=== PATIENT | female | born 1975 | race American Indian/Alaskan Native ===

== ENCOUNTER 2017-05-15 15:32 | Emergency (ER) | payer MEDICAID ==
[2017-05-15 15:45] VITALS: TEMP 98.3; BMI 34.2
--- NOTE | 2017-05-15 16:32 | ED PDOC ---
Arrival/HPI - General Historian: Patient - History of Present Illness Time/Duration: Prior to Arrival Context: Home - General Chief Complaint: Dizziness/Lightheaded Time Seen by Provider: 05/15/17 15:38 - History of Present Illness Narrative History of Present Illness (Text): 05/15/17 16:15 This 41 yo female with pmh hypothyroidism, HTN, presents to this ED c/o feeling light headedness, and dizzy x BACK END ENGINEER. Patient stated while walking in a local store, she developed symptoms. Patient stated she feels well in her normal state of health. Patient does not want to have blood test, or further imaging since she is asymptomatic, and she wishes to be discharge home soon. (Raquel Mosqueda) Past Medical History - Provider Review Nursing Documentation Reviewed: Yes - Infectious Disease Hx of Infectious Diseases: None - Reproductive Menopause: No - Cardiac Hx Hypertension: Yes - Pulmonary Hx Asthma: Yes (as a child she states) - Neurological Hx Neurological Disorder: No - HEENT Hx HEENT Disorder: No - Renal Hx Renal Disorder: No - Endocrine/Metabolic Hx Hyperthyroidism: Yes (thyroidectomy) Hx Hypothyroidism: Yes (thyroidectomy 09/2016) - Hematological/Oncological Hx Blood Disorders: No - Integumentary Hx Dermatological Disorder: No - Musculoskeletal/Rheumatological Hx Musculoskeletal Disorders: No - Gastrointestinal Hx Gastrointestinal Disorders: No - Genitourinary/Gynecological Hx Genitourinary Disorders: No - Psychiatric Hx Psychophysiologic Disorder: No Hx Substance Use: No - Surgical History Hx Section: Yes (2000) Hx Tubal Ligation: Yes - Anesthesia Hx Anesthesia: Yes Hx Anesthesia Reactions: No Hx Malignant Hyperthermia: No - Suicidal Assessment Feels Threatened In Home Enviroment: No Family/Social History - Physician Review Nursing Documentation Reviewed: Yes Family/Social History: Other (non-contributory) Smoking Status: Never Smoked Hx Alcohol Use: No Hx Substance Use: No Allergies/Home Meds Allergies/Adverse Reactions: Allergies alprazolam [From Xanax] Allergy (Verified 12/01/16 20:27) Home Medications: Home Meds Medication Instructions Recorded Confirmed Losartan [Cozaar] 50 mg PO DAILY 07/22/15 05/15/17 Levothyroxine [Synthroid] 150 mcg PO DAILY 11/24/16 05/15/17 Review of Systems - Review of Systems Constitutional: Normal. absent: Fatigue, Weight Change, Fevers, Night Sweats Eyes: Normal ENT: Normal Respiratory: Normal Cardiovascular: Normal Gastrointestinal: Normal Genitourinary Female: Normal Musculoskeletal: Normal Skin: Normal Neurological: Dizziness. absent: Headache, Focal Weakness, Gait Changes, Speech Changes, Facial Droop, Disequilibrium, Seizure Endocrine: Normal Hemo/Lymphatic: Normal Psychiatric: Normal Physical Exam Temperature: Afebrile Blood Pressure: Normal Pulse: Regular Respiratory Rate: Normal Appearance: Positive for: Well-Appearing, Non-Toxic, Comfortable Pain Distress: None Mental Status: Positive for: Alert and Oriented X 3 - Systems Exam Head: Present: Atraumatic, Normocephalic Pupils: Present: PERRL Extroacular Muscles: Present: EOMI Conjunctiva: Present: Normal Mouth: Present: Moist Mucous Membranes Neck: Present: Normal Range of Motion. No: Meningeal Signs Respiratory/Chest: Present: Clear to Auscultation, Good Air Exchange. No: Respiratory Distress, Accessory Muscle Use, Wheezes, Decreased Breath Sounds, Rales, Retracting, Rhonchi Cardiovascular: Present: Regular Rate and Rhythm, Normal S1, S2. No: Murmurs Abdomen: Present: Normal Bowel Sounds. No: Tenderness, Distention, Peritoneal Signs, Rebound, Guarding Back: Present: Normal Inspection. No: CVA Tenderness Upper Extremity: Present: Normal Inspection, Normal ROM Lower Extremity: Present: Normal Inspection, Normal ROM Neurological: Present: GCS=15, CN II-XII Intact, Speech Normal, Motor Func Grossly Intact, Normal Sensory Function, Normal Cerebellar Funct, Gait Normal Skin: Present: Warm, Dry, Normal Color. No: Rashes Psychiatric: Present: Alert, Oriented x 3, Normal Insight, Normal Concentration Medical Decision Making Re-evaluation Time: 16:44 Reassessment Condition: Re-examined, Improved ED Course and Treatment: 05/15/17 16:38 Patient came by BLS for one episode of dizziness while walking at a local store. patient check her BP and it was found to be elevated 170's/110's. manager learning called ambulance. During physical exam, patient stated dizziness has improved, and she feels well on her normal state of health. Patient stated she is feeling well, that she does not wish to have blood test done. She would like to be discharge home, and she will return to emergency if symptoms returns. Patient has a normal gait. (Raquel Mosqueda) I was available for consultation during PA evaluation. The chart was reviewed by me, and I agree with disposition. The documented history was done by the physician elementary school librarian. The documented procedures were done by the physician elementary school librarian. (Jose Ann) - Medication Orders Current Medication Orders: Discontinued Medications Meclizine HCl (Antivert) 50 mg PO STAT STA Stop: 05/15/17 16:29 Disposition/Present on Arrival - Present on Arrival Any Indicators Present on Arrival: No History of DVT/PE: No History of Uncontrolled Diabetes: No Urinary Catheter: No History of Decub. Ulcer: No History Surgical Site Infection Following: None - Disposition Have Diagnosis and Disposition been Completed?: Yes Disposition Time: 16:45 Patient Plan: Discharge - Disposition Diagnosis: Dizziness Disposition: HOME/ ROUTINE Discharge Instructions (ExitCare): Dizziness (ED) Additional Instructions: Call private doctor for follow up visit in 1-2 days. Make sure to take your medication as instructed by your doctor. return to emergency if symptoms worsen. Prescriptions: Meclizine [Meclizine*] 25 mg PO Q6 PRN #20 tab PRN Reason: Dizziness Referrals: PCP,NO [Primary Care Provider] - Follow up with primary [facility] [Outside] - Follow up with primary [facility] [Outside] - Follow up with primary Forms: [employer] (Ugandan)
[2017-05-15 16:55] VITALS: BP 120/80; PULSE 62; RESP 17; O2SAT 99
== END 2017-05-15 16:58 | disposition home or self-care (01) ==
LOC: ED 15:32
DX: R42 Dizziness and giddiness (principal); I10 Essential (primary) hypertension

== ENCOUNTER 2017-10-09 02:39 | Emergency (ER) | payer MEDICAID ==
[2017-10-09 02:40] VITALS: BMI 34.2
[2017-10-09 02:45] VITALS: TEMP 98.3
[2017-10-09] MEDS ORDERED: HYDROmorphone 1 mg/ml ISec IM STA (03:03)
[2017-10-09] MEDS ORDERED: DiphenhydrAMINE 50 mg/ml Inj IM STA (03:03)
[2017-10-09 03:16] LABS: BASO # 0.02 K/mm3 (0.0-2.0); BASO % 0.4 % (0.0-3.0); EOS # 0.1 (0.0-0.7); GRAN # 2.68 (1.4-6.5); GRAN % 54.6 % (50.0-68.0); HEMOGLOBIN 10.9 g/dL (12.0-16.0); LYMPH # 1.9 (1.2-3.4); LYMPH % 39.5 % (22.0-35.0); MEAN CELL VOLUME 87.2 fl (80.0-105.0); MEAN CORPUSCULAR HGB CONC 33.2 g/dl (31.0-37.0); MEAN PLATELET VOLUME 9.6 fl (7.0-11.0); MONO # 0.2 (0.1-0.6); MONO % 4.5 % (1.0-6.0); RBC 3.76 10^6/uL (3.5-6.1); RED CELL DISTRIBUTION WIDTH 13.6 % (11.5-14.5); WHITE BLOOD COUNT 4.9 10^3/ul (4.5-11.0)
[2017-10-09 03:23] LABS: ALB/GLOB RATIO 1.2 (1.1-1.8); ALBUMIN 4.1 g/dL (3.0-4.8); ALT/SGPT 31 U/L (7-56); AST/SGOT 23 U/L (14-36); BLOOD UREA NITROGEN 18 mg/dL (7-21); CALCIUM 8.6 mg/dL (8.4-10.5); GFR AFRICAN-AMERICAN 50; GFR NON-AFRICAN AMERICAN 42
[2017-10-09 03:32] LABS: INR 1.03 (0.93-1.08); PROTHROMBIN TIME 11.8 SECONDS (9.4-12.5)
[2017-10-09 03:35] LABS: B-TYPE NATRIURETIC PEPTIDE 31.2 pg/mL (0-450); TROPONIN I < 0.01 ng/mL
--- NOTE | 2017-10-09 03:46 | ED PDOC ---
Arrival/HPI - General Chief Complaint: Medical Clearance Time Seen by Provider: 10/09/17 02:44 Historian: Patient - History of Present Illness Narrative History of Present Illness (Text): 10/09/17 03:43 A 41 year old female whose past medical history include hypertension, presents to the emergency department complaining of left sciatic nerve pain, 2 day duration eye twitch, and palpitations. The patient states that today, the palpitations felt as if her heart was skipping a beat. The patient denies fevers , chills, headache, dizziness, chest pain, shortness of breath, dyspnea on exertion, cough, abdominal pain, nausea, vomiting, diarrhea, neck pain, urinary/ bowel changes, or any other complaint. Time/Duration: Other (Today) Symptom Onset: Sudden Symptom Course: Unchanged Activities at Onset: Rest, Light Context: Home Past Medical History - Provider Review Nursing Documentation Reviewed: Yes - Infectious Disease Hx of Infectious Diseases: None - Reproductive Menopause: Yes - Cardiac Hx Hypertension: Yes - Pulmonary Hx Respiratory Disorders: No - Neurological Hx Neurological Disorder: No - HEENT Hx HEENT Disorder: No - Renal Hx Renal Disorder: No - Endocrine/Metabolic Hx Hyperthyroidism: (thyroidectomy) Hx Hypothyroidism: Yes (thyroidectomy 09/2016) - Hematological/Oncological Hx Blood Disorders: No - Integumentary Hx Dermatological Disorder: No - Musculoskeletal/Rheumatological Hx Musculoskeletal Disorders: No - Gastrointestinal Hx Gastrointestinal Disorders: No - Genitourinary/Gynecological Hx Genitourinary Disorders: No - Psychiatric Hx Psychophysiologic Disorder: No Hx Substance Use: No - Surgical History Hx Section: Yes (x2) Hx Thyroidectomy: Yes Hx Tubal Ligation: Yes - Anesthesia Hx Anesthesia: Yes Hx Anesthesia Reactions: No Hx Malignant Hyperthermia: No - Suicidal Assessment Feels Threatened In Home Enviroment: No Family/Social History - Physician Review Nursing Documentation Reviewed: Yes Family/Social History: No Known Family HX Smoking Status: Never Smoked Hx Alcohol Use: No Hx Substance Use: No Allergies/Home Meds Allergies/Adverse Reactions: Allergies alprazolam [From Xanax] Allergy (Mild, Verified 10/09/17 02:46) RASH Home Medications: Home Meds Medication Instructions Recorded Confirmed Levothyroxine [Synthroid] 150 mcg PO DAILY 11/24/16 10/09/17 Review of Systems - Physician Review All systems were reviewed & negative as marked: Yes - Review of Systems Constitutional: absent: Fevers, Night Sweats Respiratory: absent: SOB, Cough Cardiovascular: Palpitations. absent: Chest Pain, PARKER Gastrointestinal: absent: Abdominal Pain, Constipation, Nausea, Vomiting Genitourinary Female: absent: Urine Output Changes Musculoskeletal: Other (Left Sciatic nerve pain.) Neurological: absent: Headache, Dizziness Physical Exam Vital Signs Reviewed: Yes Vital Signs Temp Pulse Resp BP Pulse Ox 10/09/17 04:54 76 17 130/87 99 10/09/17 02:40 98.3 F 66 18 120/91 H 100 Temperature: Afebrile Blood Pressure: Hypertensive Pulse: Regular Respiratory Rate: Normal Appearance: Positive for: Well-Appearing, Non-Toxic, Comfortable Pain Distress: None Mental Status: Positive for: Alert and Oriented X 3 - Systems Exam Head: Present: Atraumatic, Normocephalic Pupils: Present: PERRL Extroacular Muscles: Present: EOMI Conjunctiva: Present: Normal Mouth: Present: Moist Mucous Membranes Neck: Present: Normal Range of Motion Respiratory/Chest: Present: Clear to Auscultation, Good Air Exchange. No: Respiratory Distress, Accessory Muscle Use Cardiovascular: Present: Regular Rate and Rhythm, Normal S1, S2. No: Murmurs Abdomen: Present: Normal Bowel Sounds. No: Tenderness, Distention, Peritoneal Signs Back: Present: Normal Inspection Upper Extremity: Present: Normal Inspection. No: Cyanosis, Edema Lower Extremity: Present: Normal Inspection. No: Edema Neurological: Present: GCS=15, CN II-XII Intact, Speech Normal Skin: Present: Warm, Dry, Normal Color. No: Rashes Psychiatric: Present: Alert, Oriented x 3, Normal Insight, Normal Concentration Medical Decision Making ED Course and Treatment: 10/09/17 03:45 Impression: A 41 year old female presents to the emergency department complaining of palpitations, 2 day duration eye twitch and left sciatic nerve pain. Plan: -- EKG -- Head CT -- Chest X-ray -- Aspirin -- Reassess and disposition Progress Notes: EKG: Ordered, reviewed, and independently interpreted the EKG. Rate : 59 BPM Rhythm : Sinus Bradycardia 10/09/17 05:29: Patient is resting comfortably, and is in no acute distress. Patient states that she is feeling much better. She was instructed to follow up with her PMD for further evaluation. CT Head Without Intravenous Contrast Dictated and Authenticated by: Daniel Brown MD 10/09/2017 4:26 AM Eastern Time ([place] & [place]) IMPRESSION: 1. No definite acute intracranial abnormality. 2. Incidental/non-acute findings are described above. - Lab Interpretations Lab Results: 10/09/17 03:00 10/09/17 03:00 Lab Results 10/09/17 03:00: Sodium 142, Potassium 4.0, Chloride 102, Carbon Dioxide 28, Anion Gap 16, BUN 18, Creatinine 1.4 H, Est GFR ( Amer) 50, Est GFR (Non- Af Amer) 42, Random Glucose 94, Calcium 8.6, Total Bilirubin 0.3, AST 23, ALT 31 , Alkaline Phosphatase 67, Lactate Dehydrogenase 402, Total Creatine Kinase 111 , Troponin I < 0.01, NT-Pro-B Natriuret Pep 31.2, Total Protein 7.7, Albumin 4.1 , Globulin 3.6, Albumin/Globulin Ratio 1.2 10/09/17 03:00: PT 11.8, INR 1.03, D-Dimer, Quantitative < 200 10/09/17 03:00: WBC 4.9, RBC 3.76, Hgb 10.9 L, Hct 32.8 L, MCV 87.2, MCH 29.0, MCHC 33.2, RDW 13.6, Plt Count 306, MPV 9.6, Gran % 54.6, Lymph % (Auto) 39.5 H , [place] % (Auto) 4.5, Eos % (Auto) 1.0 L, Baso % (Auto) 0.4, Gran # 2.68, Lymph # (Auto) 1.9, [place] # (Auto) 0.2, Eos # (Auto) 0.1, Baso # (Auto) 0.02 I have reviewed the lab results: Yes - RAD Interpretation Radiology Orders: 10/09/17 02:45 CXR [CHEST TWO VIEWS (PA/LAT)] [RAD] Stat 10/09/17 03:30 HEAD W/O CONTRAST [CT] Stat - EKG Interpretation Interpreted by ED Physician: Yes Type: 12 lead EKG - Medication Orders Current Medication Orders: Discontinued Medications Aspirin (Aspirin) 975 mg PO STAT STA Stop: 10/09/17 03:07 Last Admin: 10/09/17 03:19 Dose: 975 mg - Scribe Statement The provider has reviewed the documentation as recorded by the Scribe Priti Hager Provider Scribe Attestation: All medical record entries made by the Scribe were at my direction and personally dictated by me. I have reviewed the chart and agree that the record accurately reflects my personal performance of the history, physical exam, medical decision making, and the department course for this patient. I have also personally directed, reviewed, and agree with the discharge instructions and disposition. Disposition/Present on Arrival - Present on Arrival Any Indicators Present on Arrival: No History of DVT/PE: No History of Uncontrolled Diabetes: No Urinary Catheter: No History of Decub. Ulcer: No History Surgical Site Infection Following: None - Disposition Have Diagnosis and Disposition been Completed?: Yes Diagnosis: Headache, Palpitations Disposition: HOME/ ROUTINE Disposition Time: 05:32 Patient Plan: Discharge Patient Problems: Current Active Problems Problem Status Onset Headache Acute Palpitations Acute Condition: GOOD Discharge Instructions (ExitCare): Palpitations (ED), Acute Headache (ED) Additional Instructions: Mrs Moore- I am happy to tell you that all of your tests are good. Please follow up with your doctor next week, and return to us if worse or any problems. Noel- Dr. Donn Bishop Referrals: Brian Haley MD [Primary Care Provider] - Follow up with primary Forms: [employer] ([place])
[2017-10-09 04:07] LABS: D DIMER < 200 ng/mL (0-243)
--- NOTE | 2017-10-09 04:26 | CT ---
EXAM: CT Head Without Intravenous Contrast CLINICAL HISTORY: 41 years old, female; Pain; Headache; Additional info: Left sided headache TECHNIQUE: Axial computed tomography images of the head/brain without intravenous contrast. All CT scans at this facility use one or more dose reduction techniques, viz.: automated exposure control; ma/kV adjustment per patient size (including targeted exams where dose is matched to indication; i.e. head); or iterative reconstruction technique. Coronal and sagittal reformatted images were created and reviewed. COMPARISON: No relevant prior studies available. FINDINGS: Brain: No intracranial hemorrhage. No mass. No definite edema. Ventricles: No hydrocephalus. Bones/joints: No acute fracture. Soft tissues: Unremarkable. Sinuses: Few left frontal retention cysts. Mastoid air cells: No mastoid effusion. Orbits: Unremarkable as visualized. IMPRESSION: 1. No definite acute intracranial abnormality. 2. Incidental/non-acute findings are described above.
[2017-10-09 04:55] VITALS: BP 130/87; PULSE 76; RESP 17; O2SAT 99
--- NOTE | 2017-10-09 08:24 | RAD ---
HISTORY: Palpitations COMPARISON: None available. TECHNIQUE: Chest PA and lateral FINDINGS: LUNGS: No focal consolidation. Please note that chest x-ray has limited sensitivity for the detection of pulmonary masses. PLEURA: No significant pleural effusion identified. No definite pneumothorax . CARDIOVASCULAR: Heart size appears top-normal. OSSEOUS STRUCTURES: No acute osseous abnormality identified. VISUALIZED UPPER ABDOMEN: Unremarkable. OTHER FINDINGS: None. IMPRESSION: No focal consolidation, significant pleural effusion, or definite pneumothorax identified.
--- NOTE | 2017-10-09 16:12 | CARD ---
APPROVED REPORT EKG Measurement Heart [id number] MD [id number] <Conclusion> Sinus bradycardia Minimal voltage criteria for LVH, may be normal variant Borderline ECG
== END 2017-10-09 05:42 | disposition home or self-care (01) ==
LOC: ED 02:39
DX: R51 Headache (principal); R00.2 Palpitations; I10 Essential (primary) hypertension

== ENCOUNTER 2017-11-08 02:33 | Emergency (ER) | payer MEDICAID ==
[2017-11-08 02:56] VITALS: BMI 29.8
[2017-11-08 03:08] VITALS: O2SAT 100
--- NOTE | 2017-11-08 03:10 | ED PDOC ---
Arrival/HPI - General Chief Complaint: Weakness/Neurological Deficit Time Seen by Provider: 11/08/17 02:58 Historian: Patient - History of Present Illness Narrative History of Present Illness (Text): you were treated in the ED today for history of hypertension, having left eye twitching, left arm tingling for 24hrs and now some developing left arm numbness , having some stress but otherwise without any nausea/vomiting/headache/ dizziness/difficulty breathing/chest pain/abdomen pain/numbness/loss of limb function/pain with urination/thoughts to harm yourself or others or hallucinations. 11/08/17 03:08 11/08/17 03:10 Time/Duration: 24 hours Symptom Onset: Gradual Symptom Course: Intermittent Quality: Other (no pain) Activities at Onset: Rest Context: Sitting Past Medical History - Provider Review Nursing Documentation Reviewed: Yes - Travel History Have you recently traveled outside [place] w/in the past 3 mons?: No - Infectious Disease Hx of Infectious Diseases: None - Cardiac Hx Hypertension: Yes - Pulmonary Hx Respiratory Disorders: No - Neurological Hx Neurological Disorder: No - HEENT Hx HEENT Disorder: No - Renal Hx Renal Disorder: No - Endocrine/Metabolic Hx Hyperthyroidism: (thyroidectomy) Hx Hypothyroidism: Yes (thyroidectomy 09/2016) - Hematological/Oncological Hx Blood Disorders: No - Integumentary Hx Dermatological Disorder: No - Musculoskeletal/Rheumatological Hx Musculoskeletal Disorders: No - Gastrointestinal Hx Gastrointestinal Disorders: No - Genitourinary/Gynecological Hx Genitourinary Disorders: No - Psychiatric Hx Psychophysiologic Disorder: No Hx Substance Use: No - Surgical History Hx Section: Yes (x2) Hx Thyroidectomy: Yes Hx Tubal Ligation: Yes - Anesthesia Hx Anesthesia: Yes Hx Anesthesia Reactions: No Hx Malignant Hyperthermia: No - Suicidal Assessment Feels Threatened In Home Enviroment: No Family/Social History - Physician Review Nursing Documentation Reviewed: Yes Family/Social History: No Known Family HX Smoking Status: Never Smoked Hx Alcohol Use: No Hx Substance Use: No Allergies/Home Meds Allergies/Adverse Reactions: Allergies alprazolam [From Xanax] Allergy (Mild, Verified 10/09/17 02:46) RASH Home Medications: Home Meds Medication Instructions Recorded Confirmed Levothyroxine [Synthroid] 150 mcg PO DAILY 11/24/16 11/08/17 Losartan [Cozaar] 50 mg PO DAILY 11/08/17 11/08/17 Review of Systems - Review of Systems Constitutional: Normal Eyes: Normal ENT: Normal Respiratory: Normal Cardiovascular: Normal Gastrointestinal: Normal Genitourinary Female: Normal Musculoskeletal: Normal Skin: Normal Neurological: Other (numbness) Endocrine: Normal Hemo/Lymphatic: Normal Psychiatric: Normal Physical Exam Vital Signs Reviewed: Yes Vital Signs Temp Pulse Resp BP Pulse Ox 11/08/17 03:06 97.9 F 68 18 141/69 100 Appearance: Positive for: Well-Appearing, Non-Toxic, Comfortable Pain Distress: None Mental Status: Positive for: Alert and Oriented X 3 - Systems Exam Head: Present: Atraumatic, Normocephalic Pupils: Present: PERRL Extroacular Muscles: Present: EOMI Conjunctiva: Present: Normal Ears: Present: Normal Mouth: Present: Moist Mucous Membranes Pharnyx: Present: Normal Nose (External): Present: Atraumatic Nose (Internal): Present: Normal Inspection Neck: Present: Normal Range of Motion Respiratory/Chest: Present: Clear to Auscultation, Good Air Exchange Cardiovascular: Present: Regular Rate and Rhythm Abdomen: No: Tenderness, Distention, Normal Bowel Sounds, Peritoneal Signs, Rebound, Guarding, McBurney's Point Tender, Rovsing's Sign Present, Hernias, Feeding Tubes, Ostomy Tubes, Mass/Organomegaly, Scars, Other Upper Extremity: Present: Normal Inspection Lower Extremity: Present: Normal Inspection Neurological: Present: GCS=15, CN II-XII Intact, Speech Normal, Motor Func Grossly Intact Skin: Present: Warm, Normal Color Psychiatric: Present: Alert, Oriented x 3, Normal Insight, Normal Concentration Medical Decision Making ED Course and Treatment: you were treated in the ED today for history of hypertension, having left eye twitching, left arm tingling for 24hrs and now some developing left arm numbness , having some stress but otherwise without any nausea/vomiting/headache/ dizziness/difficulty breathing/chest pain/abdomen pain/numbness/loss of limb function/pain with urination/thoughts to harm yourself or others or hallucinations. You were otherwise breathing easily, pink moist lips, smiling and talking easily, good strength/sensation, alert/oriented, walking easily, clear lungs, no abdomen tenderness, no fever temp 97.9, stable heart rate 68, stable breathing rate 18, excellent oxygen level 100% room air, elevated blood pressure 141/69 which we recommend repeat in 2-3 days primary care office to determine further treatment, you have blood tests no infection count 5, stable blood level hemoglobin 11/platelets 302, stable chemistry, potassium mildly increased above normal 5.0 at 5.1, creatinine mildly high but decreased from prior 1.3 from 1.4 (10/09/17), liver AST mildly increased 39, heart blood test negative less than 0.01, urine test sign of mild infection, urine test negative, radiology ct head no acute, ECG normal sinus rhythm, observation done in the ED with improvement, counselled to monitor symptoms and thus discharged home. 1. Recommend macrobid as directed for urine infection control. 2. Recommend follow-up primary care 2 days to review symptoms, referral to neurology clinic to review your symptoms, referral to ear nose throat clinic for evaluation of retention cyst to ensure no complications/ cancer development. 3. If any worsening pain, fever, chills, nausea, vomiting, difficulty breathing, numbness, loss of limb function, pain with urination or any medical condition then return to the ED. ABCD2 score low Reassessment Condition: Improved - Lab Interpretations Lab Results: 11/08/17 03:15 11/08/17 03:15 Lab Results 11/08/17 03:15: Sodium 140, Potassium 5.1 H, Chloride 104, Carbon Dioxide 26, Anion Gap 15, BUN 26 H, Creatinine 1.3 H, Est GFR ( Amer) 55, Est GFR ( Non-Af Amer) 45, Random Glucose 94, Calcium 8.4, Magnesium 1.9, Total Bilirubin 0.8, AST 39 H D, ALT 17, Alkaline Phosphatase 63, Lactate Dehydrogenase 766 H, Total Creatine Kinase 160, Troponin I < 0.01, Total Protein 8.2, Albumin 4.2, Globulin 4.0, Albumin/Globulin Ratio 1.0 L 11/08/17 03:15: Urine Color Yellow, Urine Appearance Sl cloudy, Urine pH 6.0, Ur Specific [place] 1.020, Urine Protein 30 H, Urine Glucose (UA) Negative, Urine Ketones Negative, Urine Blood Negative, Urine Nitrate Negative, Urine Bilirubin Negative, Urine Urobilinogen 0.2, Ur Leukocyte Esterase Moderate H, Urine RBC 0 - 2, Urine WBC 10 - 15, Ur Epithelial Cells 0 - 2, Urine Bacteria Mod 11/08/17 03:15: WBC 5.2, RBC 3.80, Hgb 11.1 L, Hct 33.0 L, MCV 86.8, MCH 29.2, MCHC 33.6, RDW 13.4, Plt Count 302, MPV 9.4, Gran % 57.7, Lymph % (Auto) 33.9, [place] % (Auto) 6.6 H, Eos % (Auto) 1.2 L, Baso % (Auto) 0.6, Gran # 2.98, Lymph # (Auto) 1.8, [place] # (Auto) 0.3, Eos # (Auto) 0.1, Baso # (Auto) 0.03 11/08/17 03:05: POC Glucose (mg/dL) 115 H I have reviewed the lab results: Yes - RAD Interpretation Radiology Orders: 11/08/17 03:06 HEAD W/O CONTRAST [CT] Stat Fleet Operations Manager: Radiologist (see [facility] for ct head) - EKG Interpretation Interpreted by ED Physician: Yes (NSR, flipped t waves avr, v1) Type: 12 lead EKG NIHSS Stroke Scale 3 - Date/Time Evaluation Performed Date Performed: 11/08/17 When Was NIHSS Performed: Baseline - How Severe is the Stroke Level of Consciousness: 0=Alert LOC to Questions: 0=Both comments correct LOC to commands: 0=Obeys both correctly Best Gaze: 0=Normal Visual: 0=No visual loss Facial: 0=Normal Motor Arm - Left: 0=No drift Motor Arm - Right: 0=No drift Motor Leg - Left: 0=No drift Motor Leg - Right: 0=No drift Limb Ataxia: 0=Absent Sensory: 0=Normal Best Language: 0=No aphasia Dysarthia: 0=Normal articulation Extinction & Inattention (Neglect): 0=Normal, no object Score: 0 Disposition/Present on Arrival - Present on Arrival Any Indicators Present on Arrival: No History of DVT/PE: No History of Uncontrolled Diabetes: No Urinary Catheter: No History of Decub. Ulcer: No History Surgical Site Infection Following: None - Disposition Have Diagnosis and Disposition been Completed?: Yes Diagnosis: Tingling Disposition: HOME/ ROUTINE Disposition Time: 05:03 Patient Plan: Discharge Patient Problems: Current Active Problems Problem Status Onset Tingling Acute Condition: IMPROVED Additional Instructions: you were treated in the ED today for history of hypertension, having left eye twitching, left arm tingling for 24hrs and now some developing left arm numbness , having some stress but otherwise without any nausea/vomiting/headache/ dizziness/difficulty breathing/chest pain/abdomen pain/numbness/loss of limb function/pain with urination/thoughts to harm yourself or others or hallucinations. You were otherwise breathing easily, pink moist lips, smiling and talking easily, good strength/sensation, alert/oriented, walking easily, clear lungs, no abdomen tenderness, no fever temp 97.9, stable heart rate 68, stable breathing rate 18, excellent oxygen level 100% room air, elevated blood pressure 141/69 which we recommend repeat in 2-3 days primary care office to determine further treatment, you have blood tests no infection count 5, stable blood level hemoglobin 11/platelets 302, stable chemistry, potassium mildly increased above normal 5.0 at 5.1, creatinine mildly high but decreased from prior 1.3 from 1.4 (10/09/17), liver AST mildly increased 39, heart blood test negative less than 0.01, urine test sign of mild infection, urine test negative, radiology ct head no acute, ECG normal sinus rhythm, observation done in the ED with improvement, counselled to monitor symptoms and thus discharged home. 1. Recommend macrobid as directed for urine infection control. 2. Recommend follow-up primary care 2 days to review symptoms, referral to neurology clinic to review your symptoms, referral to ear nose throat clinic for evaluation of retention cyst to ensure no complications/ cancer development. 3. If any worsening pain, fever, chills, nausea, vomiting, difficulty breathing, numbness, loss of limb function, pain with urination or any medical condition then return to the ED. Prescriptions: Nitrofurantoin Macrocrystals [Macrobid] 100 mg PO Q12 7 Days #14 cap Forms: [employer] ([place]auruan)
[2017-11-08 03:52] LABS: BASO # 0.03 K/mm3 (0.0-2.0); BASO % 0.6 % (0.0-3.0); EOS # 0.1 (0.0-0.7); EOS % 1.2 % (1.5-5.0); GRAN # 2.98 (1.4-6.5); GRAN % 57.7 % (50.0-68.0); HEMOGLOBIN 11.1 g/dL (12.0-16.0); LYMPH # 1.8 (1.2-3.4); LYMPH % 33.9 % (22.0-35.0); MEAN CELL VOLUME 86.8 fl (80.0-105.0); MEAN CORPUSCULAR HEMOGLOBIN 29.2 pg (25.0-35.0); MEAN CORPUSCULAR HGB CONC 33.6 g/dl (31.0-37.0); MEAN PLATELET VOLUME 9.4 fl (7.0-11.0); MONO # 0.3 (0.1-0.6); MONO % 6.6 % (1.0-6.0); RBC 3.8 10^6/uL (3.5-6.1); RED CELL DISTRIBUTION WIDTH 13.4 % (11.5-14.5); WHITE BLOOD COUNT 5.2 10^3/ul (4.5-11.0)
[2017-11-08 03:53] LABS: URINE BILIRUBIN NEGATIVE (NEGATIVE); URINE BLOOD NEGATIVE (NEGATIVE); URINE GLUCOSE (UA) NEGATIVE (NEGATIVE); URINE LEUKOCYTE ESTERASE MODERATE Leu/uL (NEGATIVE); URINE NITRATE NEGATIVE (NEGATIVE); URINE PROTEIN 30 mg/dL (<30 mg/dL); URINE UROBILINOGEN 0.2 E.U./dL (<1 E.U./dL)
[2017-11-08 04:04] LABS: ALBUMIN 4.2 g/dL (3.0-4.8); ALT/SGPT 17 U/L (7-56); AST/SGOT 39 U/L (14-36); BLOOD UREA NITROGEN 26 mg/dL (7-21); CALCIUM 8.4 mg/dL (8.4-10.5); GFR AFRICAN-AMERICAN 55; GFR NON-AFRICAN AMERICAN 45; MAGNESIUM 1.9 mg/dL (1.7-2.2)
[2017-11-08 04:07] LABS: URINE APPEARANCE SL CLOUDY (CLEAR); URINE COLOR YELLOW (YELLOW)
[2017-11-08 04:09] LABS: URINE BACTERIA MOD (NEG); URINE EPITHELIAL CELLS 0 - 2 /hpf (0-5); URINE RBC 0 - 2 /hpf (0-2)
--- NOTE | 2017-11-08 04:13 | CT ---
EXAM: CT Head Without Intravenous Contrast CLINICAL HISTORY: 41 years old, female; Signs and symptoms; Other: Numbness; Additional info: 41yof, numbness/tingling TECHNIQUE: Axial computed tomography images of the head/brain without intravenous contrast. All CT scans at this facility use one or more dose reduction techniques, viz.: automated exposure control; ma/kV adjustment per patient size (including targeted exams where dose is matched to indication; i.e. head); or iterative reconstruction technique. Coronal and sagittal reformatted images were created and reviewed. COMPARISON: CT - HEAD W/O CONTRAST 2017-10-09 03:53 FINDINGS: Brain: No intracranial hemorrhage. No mass. No definite edema. Ventricles: No hydrocephalus. Bones/joints: No acute fracture. Soft tissues: Unremarkable. Sinuses: Small left frontal retention cyst. Mastoid air cells: No mastoid effusion. Orbits: Unremarkable as visualized. IMPRESSION: 1. No definite acute intracranial abnormality. Acute infarction may be CT occult within first 24 hours. If a focal deficit persists, consider followup CT or MRI for further evaluation. 2. Incidental/non-acute findings are described above.
[2017-11-08 04:15] LABS: TROPONIN I < 0.01 ng/mL
[2017-11-08 05:22] VITALS: BP 133/75; PULSE 70; RESP 19; TEMP 97.8
--- NOTE | 2017-11-08 11:50 | CARD ---
APPROVED REPORT EKG Measurement Heart [id number] OK [id number] [id number] <Conclusion> Normal sinus rhythm Minimal voltage criteria for LVH, may be normal variant Early repolarization
== END 2017-11-08 05:47 | disposition home or self-care (01) ==
LOC: ED 02:33
DX: R20.2 Paresthesia of skin (principal); I10 Essential (primary) hypertension

== ENCOUNTER 2018-02-04 19:24 | Emergency (ER) | payer MEDICAID ==
--- NOTE | 2018-02-04 19:51 | ED PDOC ---
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 She notes that she was at a store when she felt that she was going to syncopize, the store called 911 and the patient was brought into the emergency department for further evaluation The patient states that she currently feels dizzy. She notes that she had no breakfast, a sandwich for lunch, and has not yet had anything to eat since then. The patient denies fevers, chills, headache, chest pain, shortness of breath, dyspnea on exertion, cough, abdominal pain, nausea, vomiting, diarrhea, back pain, neck pain, urinary /bowel changes, or any other complaint. Time/Duration: Other (Today) Symptom Onset: Sudden Symptom Course: Unchanged Activities at Onset: Rest, Light Context: Home Past Medical History - Provider Review Nursing Documentation Reviewed: Yes - Infectious Disease Hx of Infectious Diseases: None - Cardiac Hx Hypertension: Yes - Pulmonary Hx Respiratory Disorders: No - Neurological Hx Neurological Disorder: No - HEENT Hx HEENT Disorder: No - Renal Hx Renal Disorder: No - Endocrine/Metabolic Hx Hyperthyroidism: (thyroidectomy) Hx Hypothyroidism: Yes (thyroidectomy 09/2016) - Hematological/Oncological Hx Blood Disorders: No - Integumentary Hx Dermatological Disorder: No - Musculoskeletal/Rheumatological Hx Musculoskeletal Disorders: No - Gastrointestinal Hx Gastrointestinal Disorders: No - Genitourinary/Gynecological Hx Genitourinary Disorders: No - Psychiatric Hx Psychophysiologic Disorder: No Hx Substance Use: No - Surgical History Hx Section: Yes (x2) Hx Thyroidectomy: Yes Hx Tubal Ligation: Yes - Anesthesia Hx Anesthesia: Yes Hx Anesthesia Reactions: No Hx Malignant Hyperthermia: No - Suicidal Assessment Feels Threatened In Home Enviroment: No Family/Social History - Physician Review Nursing Documentation Reviewed: Yes Family/Social History: No Known Family HX Smoking Status: Never Smoked Hx Alcohol Use: No Hx Substance Use: No Allergies/Home Meds Allergies/Adverse Reactions: Allergies alprazolam [From Xanax] Allergy (Mild, Verified 10/09/17 02:46) RASH Home Medications: Home Meds Medication Instructions Recorded Confirmed Levothyroxine [Synthroid] 150 mcg PO DAILY 11/24/16 11/08/17 Losartan [Cozaar] 50 mg PO DAILY 11/08/17 11/08/17 Review of Systems - Physician Review All systems were reviewed & negative as marked: Yes - Review of Systems Constitutional: absent: Fevers, Night Sweats Respiratory: absent: SOB, Cough Cardiovascular: absent: Chest Pain, PARKER Gastrointestinal: absent: Abdominal Pain, Diarrhea, Nausea, Vomiting Genitourinary Female: absent: Urine Output Changes Neurological: Dizziness. absent: Headache Physical Exam Vital Signs Reviewed: Yes Vital Signs Temp Pulse Resp BP Pulse Ox 02/04/18 19:52 97.5 F L 66 20 139/90 100 Temperature: Afebrile Blood Pressure: Normal Pulse: Regular Respiratory Rate: Normal Appearance: Positive for: Well-Appearing, Non-Toxic, Comfortable Pain Distress: None Mental Status: Positive for: Alert and Oriented X 3 - Systems Exam Head: Present: Atraumatic, Normocephalic Pupils: Present: PERRL Extroacular Muscles: Present: EOMI Conjunctiva: Present: Normal Mouth: Present: Moist Mucous Membranes Neck: Present: Normal Range of Motion Respiratory/Chest: Present: Clear to Auscultation, Good Air Exchange. No: Respiratory Distress, Accessory Muscle Use Cardiovascular: Present: Regular Rate and Rhythm, Normal S1, S2. No: Murmurs Abdomen: No: Tenderness, Distention, Peritoneal Signs Back: Present: Normal Inspection Upper Extremity: Present: Normal Inspection. No: Cyanosis, Edema Lower Extremity: Present: Normal Inspection. No: Edema Neurological: Present: GCS=15, CN II-XII Intact, Speech Normal Skin: Present: Warm, Dry, Normal Color. No: Rashes Psychiatric: Present: Alert, Oriented x 3, Normal Insight, Normal Concentration Medical Decision Making ED Course and Treatment: 02/04/18 19:51 Impression: A 42 year old female presents to the emergency department for a complaint of dizziness this evening. Plan: -- Head CT -- EKG -- Chest X-ray -- Labs -- Reassess and disposition Progress Notes: EKG: Ordered, reviewed, and independently interpreted the EKG. Rate : 56 BPM Rhythm : Sinus Bradychardia Interpretation : Normal EKG EXAM: CT Head Without Intravenous Contrast Dictated and Authenticated by: Deysi Victoria MD 02/04/2018 10:14 PM IMPRESSION: No acute intracranial abnormality 02/04/18 22:30 CXR Impression: As read by me, NAD - Lab Interpretations Lab Results: 02/04/18 20:11 02/04/18 20:11 Lab Results 02/04/18 22:04: Urine Color Yellow, Urine Appearance Clear, Urine pH 6.0, Ur Specific [place] 1.025, Urine Protein 100 H, Urine Glucose (UA) Negative, Urine Ketones Negative, Urine Blood Trace-intact H, Urine Nitrate Positive H, Urine Bilirubin Negative, Urine Urobilinogen 0.2, Ur Leukocyte Esterase Moderate H, Urine RBC Pending, Urine WBC Pending 02/04/18 20:11: TSH 3rd Generation 0.38 L 02/04/18 20:11: Sodium 146, Potassium 4.3, Chloride 105, Carbon Dioxide 26, Anion Gap 19, BUN 25 H, Creatinine 1.3 H, Est GFR ( Amer) 55, Est GFR ( Non-Af Amer) 45, Random Glucose 99, Calcium 7.7 L, Total Bilirubin 0.3, AST 28, ALT 37, Alkaline Phosphatase 71, Lactate Dehydrogenase 627, Total Creatine Kinase 293 H, CK-MB (CK-2) 1.0, CK-MB (CK-2) % Cancelled, Troponin I < 0.01, NT- Pro-B Natriuret Pep 35.4, Total Protein 7.8, Albumin 4.1, Globulin 3.7, Albumin/ Globulin Ratio 1.1, Lipase 243 02/04/18 20:11: PT 11.3, INR 0.99 02/04/18 20:11: WBC 4.6, RBC 3.82, Hgb 10.9 L, Hct 32.5 L, MCV 85.1, MCH 28.5, MCHC 33.5, RDW 13.3, Plt Count 382, MPV 9.2, Gran % 57.7, Lymph % (Auto) 35.4 H , [place] % (Auto) 4.3, Eos % (Auto) 2.2, Baso % (Auto) 0.4, Gran # 2.66, Lymph # ( Auto) 1.6, [place] # (Auto) 0.2, Eos # (Auto) 0.1, Baso # (Auto) 0.02 I have reviewed the lab results: Yes - RAD Interpretation Radiology Orders: 02/04/18 19:51 HEAD W/O CONTRAST [CT] Stat CHEST PORTABLE [RAD] Stat - EKG Interpretation Interpreted by ED Physician: Yes Type: 12 lead EKG - Medication Orders Current Medication Orders: Ceftriaxone Sodium (Rocephin 2 Gm Ivpb) 2 gm in 100 mls @ 100 mls/hr IVPB STAT STA PRN Reason: Protocol Stop: 02/04/18 23:54 - Scribe Statement The provider has reviewed the documentation as recorded by the Maddie Hager Provider Scribe Attestation: All medical record entries made by the Scribe were at my direction and personally dictated by me. I have reviewed the chart and agree that the record accurately reflects my personal performance of the history, physical exam, medical decision making, and the department course for this patient. I have also personally directed, reviewed, and agree with the discharge instructions and disposition. Disposition/Present on Arrival - Present on Arrival Any Indicators Present on Arrival: No History of DVT/PE: No History of Uncontrolled Diabetes: No Urinary Catheter: No History Surgical Site Infection Following: None - Disposition Have Diagnosis and Disposition been Completed?: Yes Diagnosis: Vertigo, UTI (urinary tract infection) Disposition: HOME/ ROUTINE Disposition Time: 22:01 Patient Plan: Discharge Patient Problems: Current Active Problems Problem Status Onset Vertigo Acute Condition: GOOD Discharge Instructions (ExitCare): Vertigo (a Type of Dizziness) (DC) Prescriptions: Cephalexin [Keflex] 500 mg PO TID #30 capsule Meclizine [Antivert] 12.5 mg PO TID #30 tab Referrals: Brian Haley MD [Primary Care Provider] - Follow up with primary
[2018-02-04 19:53] VITALS: O2SAT 100; BMI 36.2
[2018-02-04 20:29] LABS: BASO # 0.02 K/mm3 (0.0-2.0); BASO % 0.4 % (0.0-3.0); EOS # 0.1 (0.0-0.7); EOS % 2.2 % (1.5-5.0); GRAN # 2.66 (1.4-6.5); GRAN % 57.7 % (50.0-68.0); HEMOGLOBIN 10.9 g/dL (12.0-16.0); LYMPH # 1.6 (1.2-3.4); LYMPH % 35.4 % (22.0-35.0); MEAN CELL VOLUME 85.1 fl (80.0-105.0); MEAN CORPUSCULAR HEMOGLOBIN 28.5 pg (25.0-35.0); MEAN CORPUSCULAR HGB CONC 33.5 g/dl (31.0-37.0); MEAN PLATELET VOLUME 9.2 fl (7.0-11.0); MONO # 0.2 (0.1-0.6); MONO % 4.3 % (1.0-6.0); RBC 3.82 10^6/uL (3.5-6.1); RED CELL DISTRIBUTION WIDTH 13.3 % (11.5-14.5); WHITE BLOOD COUNT 4.6 10^3/ul (4.5-11.0)
[2018-02-04 20:38] LABS: ALB/GLOB RATIO 1.1 (1.1-1.8); ALBUMIN 4.1 g/dL (3.0-4.8); ALT/SGPT 37 U/L (7-56); AST/SGOT 28 U/L (14-36); BLOOD UREA NITROGEN 25 mg/dL (7-21); CALCIUM 7.7 mg/dL (8.4-10.5); GFR AFRICAN-AMERICAN 55; GFR NON-AFRICAN AMERICAN 45; LIPASE 243 U/L (23-300)
[2018-02-04 20:40] LABS: INR 0.99 (0.93-1.08); PROTHROMBIN TIME 11.3 SECONDS (9.4-12.5)
[2018-02-04 20:50] LABS: B-TYPE NATRIURETIC PEPTIDE 35.4 pg/mL (0-450); TROPONIN I < 0.01 ng/mL
--- NOTE | 2018-02-04 22:14 | CT ---
EXAM: CT Head Without Intravenous Contrast EXAM DATE/TIME: 02/04/2018 7:51 PM CLINICAL HISTORY: 42 years old, female; Signs and symptoms; Dizziness and other: Weak; Additional info: Dizzy/weak TECHNIQUE: Axial computed tomography images of the head/brain without intravenous contrast. All CT scans at this facility use one or more dose reduction techniques, viz.: automated exposure control; ma/kV adjustment per patient size (including targeted exams where dose is matched to indication; i.e. head); or iterative reconstruction technique. Coronal and sagittal reformatted images were created and reviewed. COMPARISON: CT - HEAD W/O CONTRAST 2017-11-08 03:50 FINDINGS: Brain and ventricles: Ventricles are normal in size and configuration. There is no midline shift. There are no intra-axial or extra-axial mass lesions or areas of hemorrhage. There are no abnormal fluid collections. Hannah-white differentiation is maintained. Bones: Cranial vault is intact. Soft tissues: unremarkable Sinuses: There is no acute sinusitis. Ears and mastoids: Middle ears and mastoids are unremarkable Orbits: Orbital contents are unremarkable. IMPRESSION: No acute intracranial abnormality
[2018-02-04 22:43] LABS: URINE APPEARANCE CLEAR (CLEAR); URINE BILIRUBIN NEGATIVE (NEGATIVE); URINE BLOOD TRACE-INTACT (NEGATIVE); URINE COLOR YELLOW (YELLOW); URINE GLUCOSE (UA) NEGATIVE (NEGATIVE); URINE LEUKOCYTE ESTERASE MODERATE Leu/uL (NEGATIVE); URINE PROTEIN 100 mg/dL (<30 mg/dL); URINE UROBILINOGEN 0.2 E.U./dL (<1 E.U./dL)
[2018-02-04] MEDS ORDERED: cefTRIAXone 2 GM IN NS 2 GM/100 ML BAG IVPB STA (22:55)
[2018-02-04 23:05] LABS: URINE BACTERIA MANY (NEG); URINE WBC 20 - 25 /hpf (0-6)
[2018-02-04 23:17] VITALS: BP 132/82; PULSE 76; RESP 17; TEMP 98.2
--- NOTE | 2018-02-05 08:30 | RAD ---
HISTORY: dizzy/weak COMPARISON: No prior. FINDINGS: LUNGS: No active pulmonary disease. PLEURA: No significant pleural effusion identified, no pneumothorax apparent. CARDIOVASCULAR: Normal. OSSEOUS STRUCTURES: No significant abnormalities. VISUALIZED UPPER ABDOMEN: Normal. OTHER FINDINGS: None. IMPRESSION: No active disease.
--- NOTE | 2018-02-05 19:04 | CARD ---
APPROVED REPORT EKG Measurement Heart [id number] <Conclusion> Sinus bradycardia Otherwise normal ECG
== END 2018-02-04 23:17 | disposition home or self-care (01) ==
LOC: ED 19:24
DX: N39.0 Urinary tract infection, site not specified (principal); R42 Dizziness and giddiness; I10 Essential (primary) hypertension

== ENCOUNTER 2018-02-05 11:07 | Emergency (ER) | payer MEDICAID ==
[2018-02-05 11:27] VITALS: BMI 36.1
--- NOTE | 2018-02-05 11:28 | ED PDOC ---
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 The patient states that public service cut off her electricity 1 week ago and she has not been eating or drinking properly since then. She notes that public service turned on her electricity this morning. She states that she did not have anything to eat this morning and went out to buy something when she began to feel like she was going to pass out. She called 911. She also complains of urinary frequency and urgency. The patient denies fevers, chills, headache, chest pain, shortness of breath, dyspnea on exertion, cough, abdominal pain, nausea, vomiting, diarrhea, back pain, neck pain, bowel changes, drug/alcohol use or any other complaint. PMD: Dr. Haley Time/Duration: Other (This Morning) Symptom Onset: Sudden Symptom Course: Unchanged Activities at Onset: Rest, Light Context: Home Associated Symptoms (Text): 02/05/18 12:26 Seen in the emergency department yesterday for similar complaints and diagnosed with vertigo and a UTI. She had a negative workup including a CT scan of the head. Past Medical History - Provider Review Nursing Documentation Reviewed: Yes - Infectious Disease Hx of Infectious Diseases: None - Cardiac Hx Hypertension: Yes - Pulmonary Hx Respiratory Disorders: No - Neurological Hx Neurological Disorder: No - HEENT Hx HEENT Disorder: No - Renal Hx Renal Disorder: No - Endocrine/Metabolic Hx Hyperthyroidism: (thyroidectomy) Hx Hypothyroidism: Yes (thyroidectomy 09/2016) - Hematological/Oncological Hx Blood Disorders: No - Integumentary Hx Dermatological Disorder: No - Musculoskeletal/Rheumatological Hx Musculoskeletal Disorders: No - Gastrointestinal Hx Gastrointestinal Disorders: No - Genitourinary/Gynecological Hx Genitourinary Disorders: No - Psychiatric Hx Psychophysiologic Disorder: No Hx Substance Use: No - Surgical History Hx Section: Yes (x2) Hx Thyroidectomy: Yes Hx Tubal Ligation: Yes - Anesthesia Hx Anesthesia: Yes Hx Anesthesia Reactions: No Hx Malignant Hyperthermia: No - Suicidal Assessment Feels Threatened In Home Enviroment: No Family/Social History - Physician Review Nursing Documentation Reviewed: Yes Family/Social History: No Known Family HX Smoking Status: Never Smoked Hx Alcohol Use: No Hx Substance Use: No Allergies/Home Meds Allergies/Adverse Reactions: Allergies alprazolam [From Xanax] Allergy (Mild, Verified 10/09/17 02:46) RASH Home Medications: Home Meds Medication Instructions Recorded Confirmed Levothyroxine [Synthroid] 150 mcg PO DAILY 11/24/16 11/08/17 Losartan [Cozaar] 50 mg PO DAILY 11/08/17 11/08/17 Review of Systems - Physician Review All systems were reviewed & negative as marked: Yes - Review of Systems Constitutional: Fatigue. absent: Fevers, Night Sweats Respiratory: absent: SOB, Cough, Wheezing Cardiovascular: Syncope (Near- syncopal episode this morning.). absent: Chest Pain, Palpitations, PARKER Gastrointestinal: absent: Abdominal Pain, Stool Changes, Diarrhea, Nausea, Vomiting Genitourinary Female: Dysuria, Frequency (and Urgency). absent: Hematuria Musculoskeletal: absent: Back Pain, Neck Pain Neurological: Dizziness. absent: Headache, Focal Weakness, Gait Changes, Speech Changes, Facial Droop, Disequilibrium, Seizure Physical Exam Vital Signs Reviewed: Yes Vital Signs Temp Pulse Resp BP Pulse Ox 02/05/18 11:27 98.2 F 56 L 18 144/99 H 99 Temperature: Afebrile Blood Pressure: Hypertensive Pulse: Bradycardic Respiratory Rate: Normal Appearance: Positive for: Well-Appearing, Non-Toxic, Comfortable Pain Distress: None Mental Status: Positive for: Alert and Oriented X 3 - Systems Exam Head: Present: Atraumatic, Normocephalic Pupils: Present: PERRL Extroacular Muscles: Present: EOMI Conjunctiva: Present: Normal Ears: Present: NORMAL TM, Normal Canal. No: Erythema Mouth: Present: Moist Mucous Membranes Pharnyx: No: ERYTHEMA, EXUDATE, TONSILS ENLARGED Neck: Present: Normal Range of Motion Respiratory/Chest: Present: Clear to Auscultation, Good Air Exchange. No: Respiratory Distress, Accessory Muscle Use Cardiovascular: Present: Regular Rate and Rhythm, Normal S1, S2. No: Murmurs Abdomen: No: Tenderness, Distention, Peritoneal Signs Back: Present: Normal Inspection Upper Extremity: Present: Normal Inspection. No: Cyanosis, Edema Lower Extremity: Present: Normal Inspection. No: Edema Neurological: Present: GCS=15, CN II-XII Intact, Speech Normal, Motor Func Grossly Intact, Normal Sensory Function, Normal Cerebellar Funct, Gait Normal Skin: Present: Warm, Dry, Normal Color. No: Rashes Psychiatric: Present: Alert, Oriented x 3, Normal Insight, Normal Concentration Medical Decision Making ED Course and Treatment: 02/05/18 11:36 Impression: A 42 year old female presents to the emergency department for a complaint of a near syncopal episode this morning. Plan: -- EKG -- Labs -- IV Fluids -- Reassess and disposition Prior Visits: Notes and results from previous visits were reviewed. Patient was last seen in the emergency department on . The patient was evaluated for a near syncopal episode. She was discharged home. Progress Notes: 02/05/18 12:28 EKG shows normal sinus rhythm rate approximately [address] or T- wave changes 02/05/18 13:25 Feeling better after eating. She will take her antibiotic for the UTI. Follow- up with PMD. Follow-up as needed. - Lab Interpretations Lab Results: 02/05/18 12:30 02/05/18 12:30 Lab Results 02/05/18 12:30: Sodium 144, Potassium 3.9, Chloride 104, Carbon Dioxide 26, Anion Gap 17, BUN 18, Creatinine 1.2, Est GFR ( Amer) 60, Est GFR (Non- Af Amer) 50, Random Glucose 94, Calcium 7.8 L, Troponin I < 0.01 02/05/18 12:30: WBC 4.7, RBC 3.88, Hgb 11.0 L, Hct 33.1 L, MCV 85.3, MCH 28.4, MCHC 33.2, RDW 13.5, Plt Count 386, MPV 9.2, Gran % 63.2, Lymph % (Auto) 30.7, [place] % (Auto) 4.2, Eos % (Auto) 1.3 L, Baso % (Auto) 0.6, Gran # 2.99, Lymph # ( Auto) 1.5, [place] # (Auto) 0.2, Eos # (Auto) 0.1, Baso # (Auto) 0.03 I have reviewed the lab results: Yes - EKG Interpretation Interpreted by ED Physician: Yes Type: 12 lead EKG - Medication Orders Current Medication Orders: Discontinued Medications Sodium Chloride (Sodium Chloride 0.9%) 500 mls @ 500 mls/hr IV ONCE ONE Stop: 02/05/18 12:32 Last Admin: 02/05/18 11:35 Dose: 500 mls/hr eMAR Start Stop Document 02/05/18 11:35 EUSEBIO (Rec: 02/05/18 11:55 LA [id number]) Intravenous Solution Start Date 02/05/18 Start Time 11:35 End Date 02/05/18 End time 12:35 Total Infusion Time 60 - Scribe Statement The provider has reviewed the documentation as recorded by the Richardibe Priti Hager Provider Scribe Attestation: All medical record entries made by the Scribe were at my direction and personally dictated by me. I have reviewed the chart and agree that the record accurately reflects my personal performance of the history, physical exam, medical decision making, and the department course for this patient. I have also personally directed, reviewed, and agree with the discharge instructions and disposition. Disposition/Present on Arrival - Present on Arrival Any Indicators Present on Arrival: No History of DVT/PE: No History of Uncontrolled Diabetes: No Urinary Catheter: No History of Decub. Ulcer: No History Surgical Site Infection Following: None - Disposition Have Diagnosis and Disposition been Completed?: Yes Diagnosis: Lightheadedness, Near syncope, Hypertension, Urinary tract infection Disposition: HOME/ ROUTINE Disposition Time: 13:26 Patient Plan: Discharge Condition: IMPROVED Discharge Instructions (ExitCare): Urinary Tract Infections in Adults, High Blood Pressure in Adults, Near Fainting Additional Instructions: Finish your antibiotics. Increase fluids. Follow-up with PMD. Follow-up in the ER as needed.
[2018-02-05] MEDS ORDERED: Sodium Chloride 0.9% 500 ML IV ONE (11:33)
[2018-02-05 11:41] VITALS: RESP 18
[2018-02-05 12:50] LABS: BASO # 0.03 K/mm3 (0.0-2.0); BASO % 0.6 % (0.0-3.0); EOS # 0.1 (0.0-0.7); EOS % 1.3 % (1.5-5.0); GRAN # 2.99 (1.4-6.5); GRAN % 63.2 % (50.0-68.0); LYMPH # 1.5 (1.2-3.4); LYMPH % 30.7 % (22.0-35.0); MEAN CELL VOLUME 85.3 fl (80.0-105.0); MEAN CORPUSCULAR HEMOGLOBIN 28.4 pg (25.0-35.0); MEAN CORPUSCULAR HGB CONC 33.2 g/dl (31.0-37.0); MEAN PLATELET VOLUME 9.2 fl (7.0-11.0); MONO # 0.2 (0.1-0.6); MONO % 4.2 % (1.0-6.0); RBC 3.88 10^6/uL (3.5-6.1); RED CELL DISTRIBUTION WIDTH 13.5 % (11.5-14.5); WHITE BLOOD COUNT 4.7 10^3/ul (4.5-11.0)
[2018-02-05 12:56] LABS: BLOOD UREA NITROGEN 18 mg/dL (7-21); CALCIUM 7.8 mg/dL (8.4-10.5); GFR AFRICAN-AMERICAN 60; GFR NON-AFRICAN AMERICAN 50
[2018-02-05 13:05] LABS: TROPONIN I < 0.01 ng/mL
[2018-02-05 13:43] VITALS: PULSE 62
[2018-02-05 13:49] VITALS: BP 138/85; TEMP 98; O2SAT 99
--- NOTE | 2018-02-05 18:53 | CARD ---
APPROVED REPORT EKG Measurement Heart [id number] <Conclusion> Sinus bradycardia with sinus arrhythmia Otherwise normal ECG
== END 2018-02-05 13:48 | disposition home or self-care (01) ==
LOC: ED 11:07
DX: R55 Syncope and collapse (principal); R42 Dizziness and giddiness; I10 Essential (primary) hypertension; N39.0 Urinary tract infection, site not specified
CPT/HCPCS: 80048; 84484; 85025; 93005; 96360; 99285; J7040

== ENCOUNTER 2018-11-16 21:27 | Emergency (ER) | payer MEDICAID ==
[2018-11-16 21:27] VITALS: BMI 36.1
--- NOTE | 2018-11-16 22:00 | ED PDOC ---
Arrival/HPI <Cornelius Villatoro - Last Filed: 11/16/18 23:37> - General Historian: Patient - History of Present Illness Narrative History of Present Illness (Text): 11/16/18 21:37 Patient is a 42-year-old F with PMH Asthma (as a child she states), HTN, Hyperthyroidism (thyroidectomy), Hypothyroidism (thyroidectomy 09/2016) who presents [place] [facility] for headache x 5 hours. Patient states the headache started at 4PM while driving. Patient localizes her headache to her temporal region bilaterally and frontal region. Patient quantifies the pain as 8/10 in severity and describes it as "throbbing." Patient says she also had some right-sided neck pain that radiates up towards the head. Patient says she attempted ASA, vinegar, and garlic to improve the pain, which helped a little. Of note, Patient checked her BP and says that it read as 175/110, which compelled her to call EMS. Patient admits to associated "heavy eyelids" and fatigue. Patient admits to lower extremity edema bilaterally (chronic). ROS otherwise unremarkable for photophobia, phonophobia, nausea, vomiting, chest pain, and/or shortness of breath. Time/Duration: 4-6 hours Symptom Course: Improving Severity Level: 8 <Alessandra Paiz - Last Filed: 11/17/18 05:53> - General Chief Complaint: Headache Time Seen by Provider: 11/16/18 21:32 Past Medical History - Provider Review Nursing Documentation Reviewed: Yes - Travel History Have you recently traveled outside [place] w/in the past 3 mons?: No - Past History Past History: No Previous - Infectious Disease Hx of Infectious Diseases: None - Cardiac Hx Hypertension: Yes - Pulmonary Hx Asthma: Yes (as a child she states) - Neurological Hx Neurological Disorder: No - HEENT Hx HEENT Disorder: No - Renal Hx Renal Disorder: No - Endocrine/Metabolic Hx Hypothyroidism: Yes (thyroidectomy 09/2016) - Hematological/Oncological Hx Blood Disorders: No - Integumentary Hx Dermatological Disorder: No - Musculoskeletal/Rheumatological Hx Musculoskeletal Disorders: No - Gastrointestinal Hx Gastrointestinal Disorders: No - Genitourinary/Gynecological Hx Genitourinary Disorders: No - Psychiatric Hx Substance Use: No - Surgical History Hx Section: Yes (x2) Hx Thyroidectomy: Yes Hx Tubal Ligation: Yes - Anesthesia Hx Anesthesia: Yes Hx Anesthesia Reactions: No Hx Malignant Hyperthermia: No - Suicidal Assessment Feels Threatened In Home Enviroment: No <Alessandra Paiz - Last Filed: 11/17/18 05:53> Family/Social History - Physician Review Nursing Documentation Reviewed: Yes Family/Social History: Diabetes, Neoplasm/Cancer Smoking Status: Never Smoked Hx Alcohol Use: No Hx Substance Use: No <Alessandra Paiz - Last Filed: 11/17/18 05:53> Allergies/Home Meds <Cornelius Villatoro - Last Filed: 11/16/18 23:37> <Alessandra Paiz - Last Filed: 11/17/18 05:53> Allergies/Adverse Reactions: Allergies alprazolam [From Xanax] Allergy (Mild, Verified 11/16/18 21:38) RASH Home Medications: Home Meds Medication Instructions Recorded Confirmed Levothyroxine [Synthroid] 150 mcg PO DAILY 11/24/16 11/16/18 Losartan [Cozaar] 50 mg PO DAILY 11/08/17 11/16/18 Review of Systems - Review of Systems Constitutional: Fatigue. absent: Weight Change, Fevers, Night Sweats Eyes: absent: Vision Changes, Photophobia ENT: Normal Respiratory: absent: SOB, Cough, Sputum, Wheezing Cardiovascular: Edema. absent: Chest Pain, Palpitations, Calf Pain, Syncope Gastrointestinal: absent: Abdominal Pain, Stool Changes, Diarrhea, Nausea, Vomiting Genitourinary Female: Normal Musculoskeletal: Normal Skin: Normal Neurological: Headache. absent: Dizziness, Focal Weakness, Gait Changes Endocrine: Normal Hemo/Lymphatic: Normal Psychiatric: Normal <Alessandra Paiz - Last Filed: 11/17/18 05:53> Physical Exam Vital Signs Temp Pulse Resp BP Pulse Ox 11/16/18 21:36 98.9 F 87 18 142/98 H 100 <Cornelius Villatoro - Last Filed: 11/16/18 23:37> Vital Signs Reviewed: Yes Temperature: Afebrile Blood Pressure: Hypertensive Pulse: Regular Respiratory Rate: Normal Appearance: Positive for: Other (lethargic) Pain Distress: Moderate Mental Status: Positive for: Alert and Oriented X 3 - Systems Exam Head: Present: Atraumatic, Normocephalic Pupils: Present: PERRL Extroacular Muscles: Present: EOMI Conjunctiva: Present: Normal Mouth: Present: Moist Mucous Membranes Nose (External): Present: Atraumatic Neck: Present: Normal Range of Motion Respiratory/Chest: Present: Clear to Auscultation, Good Air Exchange. No: Respiratory Distress, Accessory Muscle Use Cardiovascular: Present: Regular Rate and Rhythm, Normal S1, S2 Abdomen: Present: Normal Bowel Sounds. No: Tenderness, Distention, Peritoneal Signs Back: Present: Normal Inspection Upper Extremity: Present: Normal Inspection. No: Cyanosis, Edema Lower Extremity: Present: Normal Inspection. No: Edema Neurological: Present: GCS=15, CN II-XII Intact, Speech Normal Skin: Present: Warm, Dry, Normal Color. No: Rashes Psychiatric: Present: Alert, Oriented x 3, Normal Insight, Lethargic <Alessandra Paiz - Last Filed: 11/17/18 05:53> Medical Decision Making ED Course and Treatment: Impression: Pt seen and evaluated with medical laboratory technician. Aware and agree with HPI, clinical findings, plan, and management. Pt, whose past medical history includes asthma, hypertension, hyperthyroidism, hypothyroidism s/p thyroidectomy, presented for headache today. Plan: -- CT Head w/o contrast -- CXR -- Labs, troponin, TSH, alcohol level -- UA, urine drug screen -- IV fluids -- Reassess and disposition 11/16/18 23:37 CT Head: BRAIN No acute intraparenchymal hemorrhage. No mass lesion. No CT evidence for acute territorial infarct. No midline shift or extra-axial collections. VENTRICLES: No hydrocephalus. ORBITS: The orbits are unremarkable. SINUSES AND MASTOIDS: The paranasal sinuses and mastoid air cells are clear. BONES: No fracture. SOFT TISSUES: Unremarkable. IMPRESSION: No acute intracranial abnormality. No significant change from 02/04/2018. Electronically signed on Nov 16, 2018 11:33:03 PM EDT by: Renny Frye M.D., [place] Certified By [facility] [employer] [facility] Fellowship Trained MRI and CT Specialist - Lab Interpretations Lab Results: PT 11.6 SECONDS (9.4-12.5) 11/16/18 22:15 INR 1.05 11/16/18 22:15 APTT 32.3 Seconds (26.9-38.3) 11/16/18 22:15 Troponin I < 0.01 ng/mL 11/16/18 22:15 Total Bilirubin 0.5 mg/dL (0.2-1.3) 11/16/18 22:15 AST 43 U/L (14-36) H D 11/16/18 22:15 ALT 55 U/L (7-56) 11/16/18 22:15 Alkaline Phosphatase 84 U/L (38-126) 11/16/18 22:15 Total Protein 8.5 g/dL (5.8-8.3) H 11/16/18 22:15 Albumin 4.3 g/dL (3.0-4.8) 11/16/18 22:15 Globulin 4.2 gm/dL 11/16/18 22:15 Albumin/Globulin Ratio 1.0 (1.1-1.8) L 11/16/18 22:15 - RAD Interpretation Radiology Orders: 11/16/18 22:02 HEAD W/O CONTRAST [CT] Stat CHEST PORTABLE [RAD] Stat Enamel Finisher: Radiologist - Medication Orders Current Medication Orders: Sodium Chloride (Sodium Chloride 0.9%) 1,000 mls @ 999 mls/hr IV .Q1H1M STA Stop: 11/16/18 23:02 Last Admin: 11/16/18 22:26 Dose: 999 mls/hr eMAR Start Stop Document 11/16/18 22:26 CNR (Rec: 11/16/18 22:26 CNR [id number]) Intravenous Solution Start Date 11/16/18 Start Time 22:26 End Date 11/16/18 End time 23:26 Total Infusion Time 60 <Cornelius Villatoro - Last Filed: 11/16/18 23:37> Disposition/Present on Arrival <Cornelius Villatoro - Last Filed: 11/16/18 23:37> - Present on Arrival Any Indicators Present on Arrival: No History of DVT/PE: No History of Uncontrolled Diabetes: No Urinary Catheter: No History of Decub. Ulcer: No History Surgical Site Infection Following: None - Disposition Have Diagnosis and Disposition been Completed?: Yes Disposition Time: 07:30 Patient Plan: Discharge <Alessandra Paiz - Last Filed: 11/17/18 05:53> - Disposition Diagnosis: Headache Disposition: HOME/ ROUTINE Patient Problems: Current Active Problems Problem Status Onset Headache Acute Condition: STABLE Discharge Instructions (ExitCare): Tension Headache (DC) Additional Instructions: If your symptoms return, go to your nearest emergency department immediately Follow up with your PMD within 3-5 days of being discharged Referrals: Lolis Burks MD [Primary Care Provider] - Follow up with primary Forms: [employer]itter[employer] (Portuguese)
[2018-11-16] MEDS ORDERED: Sodium Chloride 0.9% 1,000 ML IV STA (22:02)
[2018-11-16 22:35] LABS: INR 1.05; PARTIAL THROMBOPLASTIN TIME 32.3 Seconds (26.9-38.3); PROTHROMBIN TIME 11.6 SECONDS (9.4-12.5)
[2018-11-16 22:36] LABS: ALBUMIN 4.3 g/dL (3.0-4.8); ALT/SGPT 55 U/L (7-56); AST/SGOT 43 U/L (14-36); BLOOD UREA NITROGEN 19 mg/dL (7-21); CALCIUM 8.2 mg/dL (8.4-10.5); GFR NON-AFRICAN AMERICAN 41
[2018-11-16 22:37] LABS: RBC 4.01 10^6/uL (3.5-6.1); WHITE BLOOD COUNT 5.6 10^3/uL (4.5-11.0)
[2018-11-16 22:38] LABS: BASO # 0.02 K/mm3 (0.0-2.0); BASO % 0.4 % (0.0-3.0); EOS % 0.2 % (1.5-5.0); HEMOGLOBIN 11.3 g/dL (12.0-16.0); LYMPH # 0.9 (1.2-3.4); LYMPH % 16.2 % (22.0-35.0); MEAN CORPUSCULAR HEMOGLOBIN 28.2 pg (25.0-35.0); MEAN CORPUSCULAR HGB CONC 32.8 g/dl (31.0-37.0); MEAN PLATELET VOLUME 9.3 fl (7.0-11.0); MONO # 0.2 (0.1-0.6); MONO % 3.8 % (1.0-6.0); RED CELL DISTRIBUTION WIDTH 14.5 % (11.5-14.5)
[2018-11-16 22:47] LABS: TROPONIN I < 0.01 ng/mL
[2018-11-16 23:23] LABS: URINE APPEARANCE CLEAR (CLEAR); URINE BILIRUBIN NEGATIVE (NEGATIVE); URINE BLOOD NEGATIVE (NEGATIVE); URINE COLOR YELLOW (YELLOW); URINE GLUCOSE (UA) NEGATIVE (NEGATIVE); URINE LEUKOCYTE ESTERASE TRACE Leu/uL (NEGATIVE); URINE PROTEIN 100 mg/dL (<30 mg/dL); URINE UROBILINOGEN 0.2 E.U./dL (<1 E.U./dL)
[2018-11-16 23:53] LABS: BARBITURATES, UR NEGATIVE (NEGATIVE); BENZODIAZEPINES, UR NEGATIVE (NEGATIVE); OPIATES, UR NEGATIVE (NEGATIVE); PHENCYCLIDINE, UR NEGATIVE (NEGATIVE)
[2018-11-17 00:25] LABS: URINE BACTERIA FEW /hpf; URINE RBC 0 - 2 /hpf (0-2)
[2018-11-17 09:14] VITALS: BP 131/76; PULSE 80; RESP 18; TEMP 98.2; O2SAT 98
--- NOTE | 2018-11-17 10:02 | CT ---
Date of service: 11/16/2018 PROCEDURE: CT HEAD WITHOUT CONTRAST. HISTORY: Headache COMPARISON: Comparison made with prior study 02/04/2018. TECHNIQUE: Axial computed tomography images were obtained through the head/brain without intravenous contrast. Radiation dose: Total exam DLP = 935.0 mGy-cm. This CT exam was performed using one or more of the following dose reduction techniques: Automated exposure control, adjustment of the mA and/or kV according to patient size, and/or use of iterative reconstruction technique. FINDINGS: HEMORRHAGE: No acute parenchymal, subarachnoid or extra-axial oculomotor nerve coronal MRI hemorrhage. BRAIN: Suspect minimal chronic periventricular white matter ischemic changes. VENTRICLES: No obstructive hydrocephalus. CALVARIUM: No acute calvarial fractures PARANASAL SINUSES: Unremarkable as visualized. No significant inflammatory changes. MASTOID AIR CELLS: Unremarkable as visualized. No inflammatory changes. OTHER FINDINGS: There appears to be very mild exophthalmos however clinical correlation with ophthalmologic examination. Consider follow-up thyroid function tests further evaluation. IMPRESSION: Acute intracranial hemorrhage. Suspect minimal chronic periventricular white matter ischemic changes. There appears to be mild exophthalmos however clinical correlation with ophthalmologic examination recommended. Consider follow-up thyroid function test.
--- NOTE | 2018-11-17 10:42 | RAD ---
Date of service: 11/16/2018 HISTORY: Wheezing. COMPARISON: 02/04/2018. FINDINGS: LUNGS: No active pulmonary disease. PLEURA: No significant pleural effusion identified, no pneumothorax apparent. CARDIOVASCULAR: No atherosclerotic calcification present Normal. OSSEOUS STRUCTURES: No significant abnormalities. VISUALIZED UPPER ABDOMEN: Normal. OTHER FINDINGS: None. IMPRESSION: No active disease. No significant interval change compared to the prior examination(s).
== END 2018-11-17 09:00 | disposition home or self-care (01) ==
LOC: ED 21:27
DX: R51 Headache (principal); I10 Essential (primary) hypertension; Z83.3 Family history of diabetes mellitus
CPT/HCPCS: 70450; 71045; 80053; 80320; 80324; 80345; 80346; 80349; 80353; 80358; 80361; 81001; 83992; 84436; 84443; 84484; 85025; 85610; 85730; 87086; 96360; 99285; J7030